=== PATIENT | male | born 1995 | race Caucasian/White ===

== ENCOUNTER 2020-07-13 10:15 | Emergency (ER) | payer SELFPAY ==
[2020-07-13 10:16] VITALS: BP 140/81; PULSE 86; RESP 15; TEMP 36.2; O2SAT 98; BMI 25.7
--- NOTE | 2020-07-13 10:38 | ED.DCSUM_ITS ---
History of Present Illness Chief Complaint: Upper Extremity Injury Informant: Patient Onset: Days Context: Sudden Onset Timing: Continuous Quality: Pain Location: Left proximal shoulder region and superior spinous process scapula Current Severity: Mild Maximum Severity: Moderate Worsened by: Movement and specifically abduction Relieved by: Adduction and internally rotated Associated Symptoms: Initially shooting pain lateral left arm Narrative: Patient is a 25-year-old [id number]-[id number] male who presents with injury to his left shoulder. This occurred 2 days ago. He states he picked up a football. He turned in with the throat felt a severe pain in the proximal left shoulder region and superior the spinous process of the left scapula. There was pain that radiated lateral aspect of the arm past the elbow. There is no history of direct trauma. There is no history of prior injury. He reports pain with movement. The pain is the worst when he abduction past 90 degrees. He denies paresthesia, anesthesia or motor weakness. Prior similar symptoms: No Recent Illness/Hospitalization: No Past Medical History - Allergies and Home Meds Allergies/Adverse Reactions: Allergies Penicillins Allergy (Verified 07/13/20 10:18) Rash Primary Care Physician: Mac Jacobo DO [Primary Care Provider] - Prior records reviewed: Yes Surgical History: no surgical history Lives: With Family Smoking Status: Current every day smoker Drugs: None Review of Systems General: Denies: Chills, Fever, Malaise Cardiovascular: Denies: Chest pain, Palpitations Respiratory: Denies: Dyspnea, Cough, Sputum, Dyspnea on exertion Musculoskeletal: Reports: Extremity Pain. Denies: Myalgias, Arthralgias, Neck pain, Back pain, Swelling Skin: Denies: Rash, Wounds Neurological: Reports: Parasthesia. Denies: Weakness, Numbness Hematologic: Denies: Easy bruising, Easy bleeding Physical Exam Vital Signs/Narrative: Vital Signs Temp Pulse Resp BP Pulse Ox 07/13/20 10:16 97.1 F L 86 15 140/81 H 98 Inital Vital Signs reviewed: Yes General: Well nourished, Well developed, No Acute Distress Head: Normocephalic, Atraumatic Eyes: Perrl, EOMI. Negative for: Pale conjunctiva, Scleral icterus Neck: Supple, Nontender, No lymphadenopathy, No JVD Cardiovascular: Regular rate, Regular rhythm, No murmurs, Normal S1, Normal S2 Respiratory: No distress, CTA bilaterally, Chest nontender Extremities: No edema, - - No patient over the lateral proximal left shoulder and posterior upper back superior the superior spinous process scapula. Patient has minimal discomfort with internal/external rotation. Abduction past 90 degrees causes him significant discomfort. He had a negative drop test. Axillary, median, radial and ulnar function intact. Radial pulses 2+.. Negative for: Nontender Skin: Normal color, No rash, - - Patient skin is covered with rubber byproduct. Neurological: Alert, Oriented x3, Cranial nerves II-XII grossly intact, Normal Strength, Normal Sensation Psychological: Normal affect Diagnostic/Tx/Re-eval Impressions Shoulder X-Ray 07/13/20 10:40 IMPRESSION: Normal x-ray examination of the shoulder. Electronically Signed: Armando Gil, at 11:01 EDT , Service support , 07/13/20 10:40 Shoulder min 2 Views [RAD] Stat Tray was interpreted by radiologist prior to my review. Agree there is no abnormality. - Medical Decision Making She was medicated with [place] and Naprosyn. X-ray was obtained to rule out bony abnormality. Suspect patient has rotator cuff. Doubt calcification of the supraspinatus tendon or fracture. ED Disposition - Plan for ED Patient: Disposition: Home or Assisted Living Diagnosis: Pain of left shoulder region Instructions: ED Shoulder Pain Uncertain Cause Prescriptions: Naproxen [Naprosyn] 500 mg PO BID #14 tab Transmission Status: Pending to [facility] Hydrocodone Bitart/Apap 5-325 [[place] 5MG-325MG] 1 tablet PO Q6H PRN PRN 3 Days #10 tablet PRN Reason: Pain Transmission Status: Received by [facility] Referrals: Mac Jacobo DO [Primary Care Provider] - Lauren Mcgill DO [STAFF PHYSICIAN] - 3-5 Days
--- NOTE | 2020-07-13 10:40 | RAD_ITS ---
STUDY: X-RAY - LEFT SHOULDER REASON FOR EXAM: Male, 25 years old. Injured left shoulder 2 days ago, pt states still feels pins and needles in left arm and really cannot move it much TECHNIQUE: 4 view(s) of the shoulder. COMPARISON: None. FINDINGS: Normal glenohumeral articulation. Normal acromioclavicular joint. Normal acromion. Normal humeral head and visualized proximal humerus. The soft tissue structures are unremarkable. Normal visualized pulmonary apex. RAD/Shoulder min 2 Views IMPRESSION: Normal x-ray examination of the shoulder. Electronically Signed: Armando Gil, at 11:01 EDT , Service support ,
[2020-07-13] MEDS: Naproxen 500 MG Tablet PO (11:35)
[2020-07-13] MEDS: HYDROcodone Bitartrate/Apap 5/325 Tablet PO (11:35)
[2020-07-13 11:36] VITALS: BP 134/66; PULSE 59; RESP 17; O2SAT 98
== END 2020-07-13 11:39 | disposition home or self-care (01) ==
PROVIDERS: Emergency Provider Emergency Medicine
DX: M25.512 Pain in left shoulder (principal); F17.200 Nicotine dependence, unspecified, uncomplicated
CPT/HCPCS: 73030; 99283